=== PATIENT | male | born 1955 | race Caucasian/White ===

== ENCOUNTER → 2019-06-28 16:06 | Outpatient (BNVA) | payer SELFPAY | PROVIDERS: PCP Family Medicine; Visit Provider Family Medicine | DX: L30.9 Dermatitis, unspecified (principal); I10 Essential (primary) hypertension; E11.9 Type 2 diabetes mellitus without complications | CPT/HCPCS: 80053; 80061; 82043; 82044; 85025 ==

== ENCOUNTER → 2020-07-20 13:26 | Outpatient (BNVA) | payer MEDICARE, SELFPAY | PROVIDERS: PCP Family Medicine; Visit Provider Surgery | DX: Z12.11 Encounter for screening for malignant neoplasm of colon (principal); Z20.822 Contact with and (suspected) exposure to COVID-19 | CPT/HCPCS: 87635 ==

== ENCOUNTER 2020-07-25 08:12 | Day surgery (SDC) | payer MEDICARE, SELFPAY ==
[2020-07-24 11:49] VITALS: BMI 31.8
--- NOTE | 2020-07-25 08:32 | ANES.PREANE2 ---
Pre-Anesthetic Assessment Pre-Anesthetic Assessment: Height/Weight: Height 1.83 m Weight 106.594 kg Preop Diagnosis: screening colonoscopy Proposed Procedure: Operation Date: 07/25/20 09:30 Proposed Procedures p Colonoscopy 96118 z12.11(Not Applicable) - Jesus Heath MD Familial anesthetic complications: None Last intake: NPO > 8 hrs Social: Social History: No alcohol and No tobacco Exam: Pre-Anes Outpt Exam: alert, oriented x 3, clear to auscultation bilaterally and regular rate & rhythm Airway: Cervical ROM: WNL MP: 4 Dentition: Loose (Near front), Partials and Other (missing) Pulmonary: Pulmonary: Asthma Metabolic: Metabolic: Hyperlipidemia Anesthetic Plan: ASA status: 2 Anesthesia: MAC Risk of > 500 ml blood loss (7ml/kg in children): No PFSH Anesthesia PFSH: Medical History (Updated 07/07/20 @ 12:08 by Debra Mills) Essential hypertension Hyperlipidemia Right shoulder pain Surgical History (Updated 06/28/19 @ 15:48 by Francheska Jarvis DO) H/O hernia repair H/O shoulder surgery H/O total knee replacement Family History Other Diabetes Social History Smoking and tobacco status: never smoked Alcohol intake: never Data Anesthesia Cardiac Studies: No Data to Display
[2020-07-25 08:52] VITALS: BP 174/100; PULSE 89; RESP 16; TEMP 37.2; O2SAT 95
[2020-07-25] MEDS: sodium chloride 0.9% 1,000 ML 30 ML IV (08:59)
--- NOTE | 2020-07-25 09:51 | W.PM.OPSFHP ---
Same Day Surgery H&P Indication for Procedure/HPI DATE OF PROCEDURE: July 25, 2020 CHIEF COMPLAINT/INDICATIONFOR SURGICAL PROCEDURE: Screening PREOP DIAGNOSIS: screening colonoscopy PLANNED PROCEDRUE: Operation Date: 07/25/20 09:30 Proposed Procedures p Colonoscopy 07408 z12.11(Not Applicable) - Jesus Heath MD Medications/Allergies* Home Medications Medication Instructions Recorded Confirmed Type fluticasone 250 mcg-salmeterol 50 1 inh INHALATION BID 07/04/20 07/24/20 History mcg/dose blistr powdr for inhalation ibuprofen 200 mg PO DAILY PRN 07/24/20 07/25/20 History Allergies/Adverse Reactions Allergy/AdvReac Type Severity Reaction Status Date / Time No Known Allergies Allergy Unverified 07/24/20 11:56 Current Medications: Generic Name Dose Route Start Last Admin Trade Name Freq PRN Reason Stop Dose Admin Sodium Chloride 1,000 mls @ 30 mls/hr 07/25/20 08:30 07/25/20 08:59 Sodium Chloride 0.9% IV 07/26/20 08:29 30 mls/hr .Q24H BRENT Administration Pertinent History/Comorbid Conditions* Medical History (Updated 06/29/19 @ 07:26 by Francheska Jarvis DO) Essential hypertension Hyperlipidemia Right shoulder pain Surgical History (Updated 06/28/19 @ 15:48 by Francheska Jarvis DO) H/O hernia repair H/O shoulder surgery H/O total knee replacement Family History (Updated 06/28/19 @ 15:42 by Amy Fay LPN) Diabetes Social History Smoking and tobacco status: never smoked Alcohol intake: never Pertinent Exam Findings alert, oriented x 3 and regular rate & rhythm Recommendations Surgery/Procedure today Coding Level of Care Code Acute [employer] for Noe Thomas
[2020-07-25 10:30] VITALS: BP 129/75; PULSE 76; RESP 18; TEMP 36.4; O2SAT 92
[2020-07-25 10:44] VITALS: BP 119/68; PULSE 72; RESP 18; O2SAT 97
--- NOTE | 2020-07-25 12:25 | ANE.PACU2 ---
Inpatient post-anesthesia follow up: Airway intact: Yes Vital signs: Temperature 97.6 F Pulse Rate 72 Respiratory Rate 18 Blood Pressure 119/68 Pulse Oximetry 97 Oxygen Delivery Me thod Room Air Oxygen Flow Rate Fraction of Inspir ed Oxygen Hydration adequate: Yes Nausea and vomiting: No Pain level: 1 Mental status: Baseline
== END 2020-07-25 10:50 | disposition home or self-care (01) ==
PROVIDERS: PCP Family Medicine; Visit Provider Surgery
PROC: 0DJD8ZZ Inspection of Lower Intestinal Tract, Via Natural or Artificial Opening Endoscopic (ICD-10-PCS; CPT 45378; principal; 2020-07-25 09:30)
DX: Z12.11 Encounter for screening for malignant neoplasm of colon (principal); K57.30 Diverticulosis of large intestine without perforation or abscess without bleeding; E78.5 Hyperlipidemia, unspecified; I10 Essential (primary) hypertension
CPT/HCPCS: 45378; J2704; J7030